=== PATIENT | female | born 1950 | race Caucasian/White ===

== ENCOUNTER → 2018-05-14 09:25 | Outpatient (CLI) | payer OTHER, SELFPAY ==
--- NOTE | 2018-05-14 | DI.MG.S_ITS ---
BILATERAL DIGITAL SCREENING MAMMOGRAM 3D/2D WITH CAD: 05/14/2018 CLINICAL: Routine screening. Comparison is made to exams dated: 05/13/2017 mammogram, 05/11/2016 mammogram, and 04/29/2015 mammogram - [facility]. There are scattered fibroglandular elements in both breasts. Current study was also evaluated with a Computer Aided Detection (CAD) system. No significant masses, calcifications, or other findings are seen in either breast. There has been no significant interval change. IMPRESSION: NEGATIVE There is no mammographic evidence of malignancy. A 1 year screening mammogram is recommended. This exam was interpreted at Station ID: [id number]. NOTE: For mammograms, a report in lay terms will be sent to the patient. Approximately 15% of breast malignancies will not be visualized mammographically. In the management of a palpable breast mass, a negative mammogram must not discourage biopsy of a clinically suspicious lesion. Electronically Signed By: Shivam avendano/ayesha:05/14/2018 14:41:54 letter sent: Normal Exam ACR BI-RADS Category 1: Negative 3341F
== END ==
PROVIDERS: Family Provider Family Medicine; PCP Family Medicine; Visit Provider Family Medicine
DX: Z12.31 Encounter for screening mammogram for malignant neoplasm of breast (principal)
CPT/HCPCS: 77063; 77067

== ENCOUNTER → 2018-05-29 08:35 | Outpatient (CLI) | payer OTHER, SELFPAY ==
[2018-05-29 09:16] LABS: Add Manual Diff / Slide Review NO; Basophils Percent Auto 2.3 % (0-2); Eosinophils Percent Auto 5.8 % (2-4); Hematocrit 38.3 % (36-46); Hemoglobin 13.1 g/dL (12.0-16.0); Lymphocytes Percent Auto 33.1 % (25-40); Mean Corpuscular HGB Conc 34.2 % (30-36); Mean Corpuscular Hemoglobin 29.1 PG (26-34); Neutrophils Absolute Auto 3100 /uL (3000-5900); Neutrophils Percent Auto 51.8 % (50-75); Platelet Count 253 X10^3/uL (150-400); Red Blood Cell Count 4.51 X10^6/uL (4.0-5.2); Red Cell Distribution Width 13.5 % (11.6-14.8)
[2018-05-29 09:38] LABS: Alanine Aminotransferase 20 IU/L (9-52); Albumin 4.2 g/dL (3.5-5.0); Albumin Globulin Ratio 1.5 (1.0-2.8); Alkaline Phosphatase 73 U/L (38-126); Aspartate Aminotransferase 14 IU/L (14-36); Bilirubin Total 0.6 mg/dL (0.2-1.3); Blood Urea Nitrogen 19 mg/dL (7-17); Carbon Dioxide 28 mmol/L (22-32); Chloride 102 mmol/L (98-107); Cholesterol 241 mg/dL (140-199); Estimated Glomerular Filt Rate 54.8 mL/min (>60); Globulin 2.8 g/dL (1.7-4.1); Glucose 91 mg/dL (80-110); HDL Cholesterol 43 mg/dL (40-60); HEMOLYSIS < 15 (0-50); LDL Cholesterol Calculated 168 mg/dL (<100); Potassium 3.6 mmol/L (3.4-5.1); Sodium 141 mmol/L (137-145); Triglycerides 148 mg/dL (35-150)
[2018-05-29 10:51] LABS: TSH w/ Reflex to FT4 4.14 uIU/mL (0.47-4.68)
== END ==
PROVIDERS: Family Provider Family Medicine; PCP Family Medicine; Visit Provider Family Medicine
DX: I10 Essential (primary) hypertension (principal); E78.5 Hyperlipidemia, unspecified; E03.9 Hypothyroidism, unspecified
CPT/HCPCS: 36415; 80053; 80061; 84443; 85025

== ENCOUNTER 2018-10-31 07:46 | Day surgery (SDC) | payer OTHER, SELFPAY ==
[2018-10-31] VITALS (7 sets, daily range): BP systolic 90–124; BP diastolic 49–77; PULSE 71–94; RESP 11–15; TEMP 36–36.8; O2SAT 93–100; BMI 27.3
[2018-10-31] MEDS: SODIUM CHLORIDE 0.9% 1,000 ML 200 ML IV (08:27)
--- NOTE | 2018-10-31 09:04 | PM.HP.1 ---
History of Present Illness Date Patient Seen: 10/31/18 Time Patient Seen: 09:04 Chief complaint: colonoscopy [id number] Narrative: The patient is a woman who had a colonoscopy 3 years ago. She was recommended to come back early to have a repeat colonoscopy. She had multiple polyps removed. Patient History Medical History Cataract (Chronic ~2012) Colon polyps (Chronic) Diverticular disease (Chronic) GI bleeding (Chronic) Hearing loss (Chronic) Hyperlipidemia (Chronic) Hypertension (Chronic) Hypothyroidism (Chronic) Chicken pox (Resolved) Measles (Resolved) Positive PPD (Resolved ~1971) Rubella (Resolved) Surgical History Anesthesia (Resolved) History of discectomy (Resolved ~1974) History of ovarian resection (Resolved ~1966) Status post rotator cuff repair (Resolved) S/P total abdominal hysterectomy and bilateral salpingo-oophorectomy (~1977) Status post appendectomy Status post laminectomy Status post laparoscopic cholecystectomy (~2004) Status post tonsillectomy and adenoidectomy (~1951) Family & Social History Family History: Reviewed 10/31/18 by Eliud Haider MD Social History: household members spouse Tobacco & Substance use: Smoking Status Never smoker alcohol intake never Meds Home Medications Medication Instructions Recorded Confirmed Type cholecalciferol (vitamin D3) 100 unit PO DAILY #0 04/11/12 10/31/18 History [Vitamin D3] lisinopril 10 mg PO QDAY #90 tab 06/30/18 10/31/18 Rx levothyroxine 100 mcg tablet 100 mcg PO QAM #30 tab 08/05/18 10/31/18 Rx triamterene-hydrochlorothiazid 1 cap PO QDAY #90 cap 08/19/18 10/31/18 Rx [Dyazide] coenzyme Q10 [CoQ-10] 100 mg PO DAILY 10/31/18 10/31/18 History docusate sodium 300 mg PO DAILY 10/31/18 10/31/18 History Allergies Allergy/AdvReac Type Severity Reaction Status Date / Time nitrous oxide Allergy Mild HTN, Verified 10/31/18 08:00 TACHYCARDIA, SOBBING oxycodone Allergy Mild HYPOTENSION Verified 10/31/18 08:00 Review of Systems Review of Systems All systems reviewed & are unremarkable except as noted in HPI and below Cardiovascular Comments: Hypertension and elevated cholesterol Endocrine Comments: Hypothyroid on medication Exam Vital Signs (past 8 hours): - 10/31/18 08:16 Temperature 96.8 F L Pulse Rate 94 H Respiratory Rate 15 Blood Pressure 124/77 Pulse Oximetry 100 Oxygen Delivery Method Room Air Narrative Exam Narrative: Operative no apparent distress. Eyes are nonicteric. Lungs are clear to auscultation. No rales or rhonchi. Heart regular rate and rhythm without murmur gallop. Abdomen is scaphoid soft nontender without mass or obvious hernia. Assessment & Plan Plan: Assessment/Plan Narrative: Patient for screening colonoscopy. I have discussed the risks and benefits. I have discussed the procedure and the rationale with the patient including risks of bleeding, perforation which would necessitate a major operation, failure to find remove all lesions and the potential to tattoo. They appeared to understand and wished to proceed.
--- NOTE | 2018-10-31 09:06 | PM.PREOP ---
Pre-operative Note Interval Note Pre-op Check: Yes History & Physical exam performed today by Physician Changes: No ASA Class (for procedural sedation): II
[2018-10-31] MEDS: SCOPOLAMINE 1 PATCH TOP (09:07)
[2018-10-31] MEDS: ONDANSETRON 4 MG/2 ML INJ IV (09:40)
[2018-10-31] MEDS: MIDAZOLAM 5 MG/5 ML VIAL IV (09:41)
[2018-10-31] MEDS: fentaNYL 250 MCG/5 ML INJ IV (09:41)
--- NOTE | 2018-10-31 09:46 | PM.OP.ENDO ---
Operative Date/Time/Diagnoses Date of procedure: 10/31/18 Time of procedure: 09:46 Pre-op diagnosis: Screening exam. Patient with a history of numerous polyps in the past. Frequently recurring. Last exam 3 years ago. Family history of rectal cancer. Post-op diagnosis: same (Extensive sigmoid diverticulosis with diverticulitis scattered elsewhere. Small internal hemorrhoids.) Procedure & Clinicians Study performed: Colonoscopy Same procedure as scheduled: Yes Indications: See preop diagnosis Surgeon: Eliud Haider Procedure Notes SCOAP/Timeout: Performed Procedure in detail: The patient was placed in the left lateral decubitus position and underwent IV sedation directed by the surgeon consisting of fentanyl and Versed. Digital exam was unremarkable. The scope was inserted and advanced through the rectum into the sigmoid, descending, transverse, and ascending colon. The colon was quite tortuous, especially the sigmoid colon. There were numerous diverticuli in the sigmoid colon and additional diverticuli scattered elsewhere. I had to insert a stiffener in order to reach the cecum.. The cecum was reached identified by the ileocecal valve and the appendiceal opening. The scope was gradually brought out. No Polyps were found. The scope ultimately was retroflexed in the rectum. The appearance was remarkable for small internal hemorrhoids with scarring. No active ulceration or inflammation was noted. The scope was removed and the patient tolerated the procedure well. The prep was good. Scope withdrawal time: 9 min Sedation minutes: 25 Findings: diverticulosis and internal hemorrhoids Recommendations: Colonscopy in 3 years (Due to family history and rapidity with which polyps form in this patient.) Follow up: as needed Disposition: PACU
== END 2018-10-31 10:43 | disposition home or self-care (01) ==
PROVIDERS: PCP Family Medicine; Visit Provider Specialist
PROC: 0DJD8ZZ Inspection of Lower Intestinal Tract, Via Natural or Artificial Opening Endoscopic (ICD-10-PCS; CPT 45378; principal; 2018-10-31 08:45)
DX: Z86.010 Personal history of colon polyps (principal); K57.30 Diverticulosis of large intestine without perforation or abscess without bleeding; K64.8 Other hemorrhoids; I10 Essential (primary) hypertension; E78.5 Hyperlipidemia, unspecified; E03.9 Hypothyroidism, unspecified
CPT/HCPCS: G0105; 99152; 99153; J2250; J2405; J3010

== ENCOUNTER → 2019-05-19 09:38 | Outpatient (CLI) | payer OTHER, SELFPAY ==
--- NOTE | 2019-05-19 | DI.MG.S_ITS ---
BILATERAL DIGITAL SCREENING MAMMOGRAM 3D/2D WITH CAD: 05/19/2019 CLINICAL: Routine screening. Comparison is made to exams dated: 05/14/2018 mammogram, 05/13/2017 mammogram, and 05/11/2016 mammogram - [facility]. There are scattered fibroglandular elements in both breasts. Current study was also evaluated with a Computer Aided Detection (CAD) system. No significant masses, calcifications, or other findings are seen in either breast. There has been no significant interval change. IMPRESSION: NEGATIVE There is no mammographic evidence of malignancy. A 1 year screening mammogram is recommended. This exam was interpreted at Station ID: [id number]. NOTE: For mammograms, a report in lay terms will be sent to the patient. Approximately 15% of breast malignancies will not be visualized mammographically. In the management of a palpable breast mass, a negative mammogram must not discourage biopsy of a clinically suspicious lesion. Electronically Signed By: Kelly valdez/ayesha:05/19/2019 11:54:45 letter sent: Normal Exam ACR BI-RADS Category 1: Negative 3341F
== END ==
PROVIDERS: PCP Family Medicine; Visit Provider Family Medicine
DX: Z12.31 Encounter for screening mammogram for malignant neoplasm of breast (principal)
CPT/HCPCS: 77063; 77067

== ENCOUNTER → 2019-06-03 09:00 | Outpatient (CLI) | payer OTHER, SELFPAY ==
[2019-06-03 09:51] LABS: Add Manual Diff / Slide Review NO; Basophils Absolute Auto 100 /uL (0-100); Basophils Percent Auto 1.2 % (0-2); Eosinophils Absolute Auto 400 /uL (0-450); Eosinophils Percent Auto 5.3 % (2-4); Hematocrit 39.6 % (36-46); Hemoglobin 13.4 g/dL (12.0-16.0); Lymphocytes Absolute Auto 2300 /uL (1100-4500); Lymphocytes Percent Auto 33.2 % (25-40); Mean Corpuscular HGB Conc 33.9 % (30-36); Mean Corpuscular Hemoglobin 28.7 PG (26-34); Mean Corpuscular Volume 84.5 fL (80-100); Monocytes Absolute Auto 500 /uL (0-900); Monocytes Percent Auto 7.9 % (3-14); Neutrophils Absolute Auto 3600 /uL (1500-7000); Neutrophils Percent Auto 52.4 % (50-75); Platelet Count 265 X10^3/uL (150-400); Red Blood Cell Count 4.68 X10^6/uL (4.0-5.2); Red Cell Distribution Width 13.6 % (11.6-14.8); White Blood Cell Count 6.8 X10^3/uL (4.5-11.0)
[2019-06-03 10:19] LABS: Alanine Aminotransferase 9 IU/L (9-52); Albumin 4.3 g/dL (3.5-5.0); Albumin Globulin Ratio 1.5 (1.0-2.8); Alkaline Phosphatase 100 U/L (38-126); Aspartate Aminotransferase 17 IU/L (14-36); Bilirubin Total 0.5 mg/dL (0.2-1.3); Blood Urea Nitrogen 17 mg/dL (7-17); Calcium 9.6 mg/dL (8.4-10.2); Carbon Dioxide 30 mmol/L (22-32); Chloride 100 mmol/L (98-107); Cholesterol 293 mg/dL (140-199); Estimated Glomerular Filt Rate 54.7 mL/min (>60); Globulin 2.9 g/dL (1.7-4.1); Glucose 102 mg/dL (80-110); HDL Cholesterol 39 mg/dL (40-60); HEMOLYSIS < 15 (0-50); LDL Cholesterol Calculated 184 mg/dL (<100); Potassium 3.4 mmol/L (3.4-5.1); Sodium 139 mmol/L (137-145); Total Protein 7.2 g/dL (6.3-8.2); Triglycerides 351 mg/dL (35-150)
[2019-06-03 10:50] LABS: TSH w/ Reflex to FT4 1.07 uIU/mL (0.47-4.68)
== END ==
PROVIDERS: PCP Family Medicine; Visit Provider Family Medicine
DX: E03.9 Hypothyroidism, unspecified (principal); E78.5 Hyperlipidemia, unspecified; I12.9 Hypertensive chronic kidney disease with stage 1 through stage 4 chronic kidney disease, or unspecified chronic kidney disease; N18.9 Chronic kidney disease, unspecified
CPT/HCPCS: 36415; 80053; 80061; 84443; 85025

== ENCOUNTER → 2020-05-30 11:09 | Outpatient (CLI) | payer MEDICARE, SELFPAY ==
--- NOTE | 2020-05-30 11:22 | DI.MG.S_ITS ---
Patient Name: MARIA ESTHER YOUNG date: 1950 Sex: F Attending Physician: Gilma Indications: Date: 05/30/2020 11:12 At the request of: CHRIS HEREDIA Procedure: MM screening mammo BI BILATERAL DIGITAL SCREENING MAMMOGRAM 3D/2D WITH CAD: 05/30/2020 CLINICAL: Routine screening. Comparison is made to exams dated: 05/19/2019 mammogram, 05/14/2018 mammogram, and 05/13/2017 mammogram - [facility]. There are scattered fibroglandular elements in both breasts. Current study was also evaluated with a Computer Aided Detection (CAD) system. No significant masses, calcifications, or other findings are seen in either breast. There has been no significant interval change. IMPRESSION: NEGATIVE There is no mammographic evidence of malignancy. A 1 year screening mammogram is recommended. This exam was interpreted at Station ID: [id number]. NOTE: For mammograms, a report in lay terms will be sent to the patient. Approximately 15% of breast malignancies will not be visualized mammographically. In the management of a palpable breast mass, a negative mammogram must not discourage biopsy of a clinically suspicious lesion. Electronically Signed By: Chris Parson M.D., jr/ayesha:05/30/2020 11:54:33 letter sent: Normal Exam ACR BI-RADS Category 1: Negative 3341F
== END ==
PROVIDERS: PCP Family Medicine; Referring Provider Family Medicine; Visit Provider Family Medicine
DX: Z12.31 Encounter for screening mammogram for malignant neoplasm of breast (principal)
CPT/HCPCS: 77063; 77067

== ENCOUNTER → 2020-07-25 08:42 | Outpatient (CLI) | payer MEDICARE, SELFPAY ==
[2020-07-25 09:24] LABS: Add Manual Diff / Slide Review NO; Basophils Absolute Auto 100 /uL (0-100); Basophils Percent Auto 1.4 % (0-2); Eosinophils Absolute Auto 400 /uL (0-450); Eosinophils Percent Auto 4.9 % (2-4); Hematocrit 37.8 % (36-46); Hemoglobin 12.6 g/dL (12.0-16.0); Lymphocytes Absolute Auto 2400 /uL (1100-4500); Lymphocytes Percent Auto 33.4 % (25-40); Mean Corpuscular HGB Conc 33.2 % (30-36); Mean Corpuscular Hemoglobin 27.9 PG (26-34); Mean Corpuscular Volume 83.9 fL (80-100); Monocytes Absolute Auto 500 /uL (0-900); Monocytes Percent Auto 6.9 % (3-14); Neutrophils Absolute Auto 3800 /uL (1500-7000); Neutrophils Percent Auto 53.4 % (50-75); Platelet Count 372 X10^3/uL (150-400); Red Cell Distribution Width 14.6 % (11.6-14.8); White Blood Cell Count 7.1 X10^3/uL (4.5-11.0)
[2020-07-25 09:44] LABS: Alanine Aminotransferase 20 IU/L (<35); Albumin 4.3 g/dL (3.5-5.0); Albumin Globulin Ratio 1.5 (1.0-2.8); Alkaline Phosphatase 104 U/L (38-126); Aspartate Aminotransferase 18 IU/L (14-36); BUN Creatinine Ratio 12.6 (6-22); Bilirubin Total 0.6 mg/dL (0.2-1.3); Blood Urea Nitrogen 14 mg/dL (7-17); Calcium 9.8 mg/dL (8.4-10.2); Carbon Dioxide 28 mmol/L (22-32); Chloride 100 mmol/L (98-107); Cholesterol 243 mg/dL (140-199); Estimated Glomerular Filt Rate 48.3 mL/min (>60); Globulin 2.8 g/dL (1.7-4.1); Glucose 104 mg/dL (80-110); HDL Cholesterol 41 mg/dL (40-60); HEMOLYSIS < 15 (0-50); LDL Cholesterol Calculated 143 mg/dL (<100); Sodium 135 mmol/L (137-145); Total Protein 7.1 g/dL (6.3-8.2); Triglycerides 295 mg/dL (35-150)
[2020-07-25 10:14] LABS: TSH w/ Reflex to FT4 0.61 uIU/mL (0.47-4.68)
== END ==
PROVIDERS: PCP Family Medicine; Referring Provider Family Medicine; Visit Provider Family Medicine
DX: E03.9 Hypothyroidism, unspecified (principal); E78.2 Mixed hyperlipidemia; I10 Essential (primary) hypertension; N18.9 Chronic kidney disease, unspecified
CPT/HCPCS: 36415; 80053; 80061; 84443; 85025

== ENCOUNTER → 2020-10-01 15:03 | Outpatient (CLI) | payer MEDICARE, SELFPAY ==
[2020-10-03 07:59] LABS: COVID19 Sendout Not Detected (Not Detect)
== END ==
PROVIDERS: PCP Family Medicine; Visit Provider Physician Assistant
DX: Z11.59 Encounter for screening for other viral diseases (principal)
CPT/HCPCS: 87635

== ENCOUNTER 2020-10-04 07:33 | Day surgery (SDC) | payer MEDICARE, SELFPAY ==
[2020-10-04] MEDS: PROPARACAINE 0.5% OPHTH SOL 2 DROPS EYE-OP (08:17)
[2020-10-04] MEDS: CATARACT EYE COMPOUND (10 DROPS/SYRINGE) 3 DROPS EYE-OP (08:19)
[2020-10-04 08:25] VITALS: BP 147/87; PULSE 85; RESP 14; TEMP 37; O2SAT 100; BMI 31.3
--- NOTE | 2020-10-04 09:08 | PM.PREOP ---
Pre-operative Note Interval Note History & Physical reviewed/Exam performed by Physician: Yes Changes to H&P: No
--- NOTE | 2020-10-04 09:09 | P.OP_ITS ---
Operative Date/Time/Diagnoses Pre-op diagnosis: Nuclear Cataract Left eye Post-op diagnosis: same Procedure & Clinicians Same procedure as scheduled: Yes Surgeon: Abilio Burnett Anesthesia Type: MAC +/- and Sedation Operative Notes Procedure in detail: Patient brought to the operating suite. Tetracaine drops placed in the left eye. Patient was prepped and draped in sterile manner. Wire lid speculum was placed in the eye. Betadine drops were placed on the eye. This was irrigated. Lidocaine jelly was placed on the eye. A paracentesis port was created with a side-port blade. 0.1 mL 1% preservative free lidocaine was injected into the anterior chamber. The anterior chamber was deepened with viscoelastic. 2.6 mm keratome was used to create a temporal clear corneal incision. Cystotome and Utrata forceps were used to create continuous tear capsulorrhexis. Balanced salt solution was used to hydro dissect the nucleus. The phacoemulsification handpiece was inserted and the nucleus was removed using the stop and chop technique. The irrigation aspiration handpiece was inserted and the remaining cortex was removed. Anterior chamber was deepened with viscoe lastic. An Hernández ZCB00 intraocular lens with a power of 21.5 was injected into the capsular bag. Irrigation aspiration handpiece was inserted and the remaining viscoelastic was removed. Incision was hydrated with balanced salt solution and found to be leak free with pressure with Weck-Lisette sponges. 0.1 mL Vigamox injected anterior chamber. 0.3 mL Kenalog 10 mg was injected subconjunctivally. Lid speculum was removed. The patient left the operating room in excellent condition. Complications: none Post-operative Condition: stable Disposition: same day surgery
[2020-10-04] MEDS: CHONDROIDTIN/SOD HYALURONATE 1.05 ML SYRINGE INTRAOCULA (09:30)
[2020-10-04] MEDS: LIDOCAINE JELLY 2% 5 ML 1 APPLIC TOP (09:30)
[2020-10-04] MEDS: TETRACAINE 0.5% OPHTH DROPS 4 ML 2 DROPS EYE-OP (09:31)
[2020-10-04] MEDS: TRIAMCINOLONE 50 MG/5 ML VIAL INJ (09:31)
[2020-10-04] MEDS: PHENYLEPHRINE/LIDOCAINE VIAL (OR) 0.2 ML EYE-OP (09:31)
[2020-10-04] MEDS: MOXIFLOXACIN INJ 5 MG/ML VIAL EYE-OP (09:31)
[2020-10-04] MEDS: BALANCED SALT IRRIG SOLN NO.2 500 ML, EPINEPHrine 1 MG IRR (09:32)
[2020-10-04 09:41] VITALS: BP 121/75; PULSE 79; RESP 16; TEMP 36.3; O2SAT 100
== END 2020-10-04 09:58 | disposition home or self-care (01) ==
PROVIDERS: PCP Family Medicine; Referring Provider Family Medicine; Visit Provider Ophthalmology
PROC: (CPT 66984; principal; 2020-10-04 09:15)
DX: H25.12 Age-related nuclear cataract, left eye (principal); I10 Essential (primary) hypertension; E03.9 Hypothyroidism, unspecified
CPT/HCPCS: 66984; J0171; J2250; J3010; J3301

== ENCOUNTER → 2020-10-15 13:44 | Outpatient (CLI) | payer MEDICARE, SELFPAY ==
[2020-10-15 15:04] LABS: COVID19 -Nasal RAPID Negative (Negative)
== END ==
PROVIDERS: PCP Family Medicine; Visit Provider Physician Assistant
DX: Z11.59 Encounter for screening for other viral diseases (principal)
CPT/HCPCS: 87635

== ENCOUNTER 2020-10-18 09:26 | Day surgery (SDC) | payer MEDICARE, SELFPAY ==
[2020-10-18] MEDS: PROPARACAINE 0.5% OPHTH SOL 2 DROPS EYE-OP (09:54)
[2020-10-18] MEDS: CATARACT EYE COMPOUND (10 DROPS/SYRINGE) 3 DROPS EYE-OP (09:54)
[2020-10-18 09:55] VITALS: BP 134/88; PULSE 88; RESP 16; TEMP 37.4; O2SAT 100; BMI 32.0
--- NOTE | 2020-10-18 10:26 | PM.PREOP ---
Pre-operative Note Interval Note History & Physical reviewed/Exam performed by Physician: Yes Changes to H&P: No
--- NOTE | 2020-10-18 10:26 | PM.OP.1 ---
Operative Date/Time/Diagnoses Pre-op diagnosis: Nuclear cataract right eye Procedure & Clinicians Procedure: Cataract Surgery Same procedure as scheduled: Yes Surgeon: Abilio Burnett Anesthesia Type: MAC +/- and Sedation Operative Notes Procedure in detail: Patient brought to the operating suite. Tetracaine drops placed in the right eye. Patient was prepped and draped in sterile manner. Wire lid speculum was placed in the eye. Betadine drops were placed on the eye. This was irrigated. Lidocaine jelly was placed on the eye. A paracentesis port was created with a side-port blade. 0.1 mL 1% preservative free lidocaine was injected into the anterior chamber. The anterior chamber was deepened with viscoelastic. 2.6 mm keratome was used to create a temporal clear corneal incision. Cystotome and Utrata forceps were used to create continuous tear capsulorrhexis. Balanced salt solution was used to hydro dissect the nucleus. The phacoemulsification handpiece was inserted and the nucleus was removed using the stop and chop technique. The irrigation aspiration handpiece was inserted and the remaining cortex was removed. Anterior chamber was deepened with viscoelastic. An Hernández ZCB00 intraocular lens with a power of 21.5 was injected into the capsular bag. Irrigation aspiration handpiece was inserted and the remaining viscoelastic was removed. Incision was hydrated with balanced salt solution and found to be leak free with pressure with Weck-Lisette sponges. 0.1 mL Vigamox injected anterior chamber. 0.3 mL Kenalog 10 mg was injected subconjunctivally. Lid speculum was removed. The patient left the operating room in excellent condition. Complications: none Post-operative Condition: stable Disposition: same day surgery
[2020-10-18] MEDS: PHENYLEPHRINE/LIDOCAINE VIAL (OR) 0.2 ML EYE-OP (11:00)
[2020-10-18] MEDS: TETRACAINE 0.5% OPHTH DROPS 4 ML 2 DROPS EYE-OP (11:01)
[2020-10-18] MEDS: MOXIFLOXACIN INJ 5 MG/ML VIAL EYE-OP (11:01)
[2020-10-18] MEDS: TRIAMCINOLONE 50 MG/5 ML VIAL INJ (11:01)
[2020-10-18] MEDS: CHONDROIDTIN/SOD HYALURONATE 1.05 ML SYRINGE INTRAOCULA (11:01)
[2020-10-18] MEDS: LIDOCAINE JELLY 2% 5 ML 1 APPLIC TOP (11:01)
[2020-10-18] MEDS: BALANCED SALT IRRIG SOLN NO.2 500 ML, EPINEPHrine 1 MG IRR (11:02)
[2020-10-18 11:17] VITALS: BP 129/79; PULSE 80; RESP 16; TEMP 37.1; O2SAT 100
== END 2020-10-18 11:26 | disposition home or self-care (01) ==
PROVIDERS: PCP Family Medicine; Referring Provider Family Medicine; Visit Provider Ophthalmology
PROC: (CPT 66984; principal; 2020-10-18 11:15)
DX: H25.11 Age-related nuclear cataract, right eye (principal); E03.9 Hypothyroidism, unspecified; I10 Essential (primary) hypertension
CPT/HCPCS: 66984; J0171; J2250; J3301

== ENCOUNTER → 2021-06-15 08:11 | Outpatient (CLI) | payer MEDICARE, SELFPAY ==
--- NOTE | 2021-06-15 | DI.MG.S_ITS ---
BILATERAL DIGITAL SCREENING MAMMOGRAM 3D/2D WITH CAD: 06/15/2021 CLINICAL: Routine screening. Comparison is made to exams dated: 05/30/2020 mammogram, 05/19/2019 mammogram, and 05/14/2018 mammogram - [facility]. The tissue of both breasts is predominantly fatty. Current study was also evaluated with a Computer Aided Detection (CAD) system. There are benign post operative findings in the left breast. No significant masses, calcifications, or other findings are seen in either breast. There has been no significant interval change. IMPRESSION: BENIGN There is no mammographic evidence of malignancy. A 1 year screening mammogram is recommended. This exam was interpreted at Station ID: [id number]. NOTE: For mammograms, a report in lay terms will be sent to the patient. Approximately 15% of breast malignancies will not be visualized mammographically. In the management of a palpable breast mass, a negative mammogram must not discourage biopsy of a clinically suspicious lesion. Electronically Signed By: Sharonda torres/ayesha:06/15/2021 09:26:46 letter sent: Normal Exam ACR BI-RADS Category 2: Benign Finding(s) 3342F
== END ==
PROVIDERS: PCP Family Medicine; Referring Provider Family Medicine; Visit Provider Family Medicine
DX: Z12.31 Encounter for screening mammogram for malignant neoplasm of breast (principal)
CPT/HCPCS: 77063; 77067

== ENCOUNTER → 2021-10-02 08:09 | Outpatient (CLI) | payer MEDICARE, SELFPAY ==
[2021-10-02 09:13] LABS: Add Manual Diff / Slide Review NO; Basophils Absolute Auto 100 /uL (0-100); Basophils Percent Auto 1.1 % (0-2); Eosinophils Absolute Auto 400 /uL (0-450); Eosinophils Percent Auto 7.4 % (2-4); Hematocrit 37.9 % (36-46); Hemoglobin 12.7 g/dL (12.0-16.0); Lymphocytes Absolute Auto 2100 /uL (1100-4500); Lymphocytes Percent Auto 35.4 % (25-40); Mean Corpuscular HGB Conc 33.6 % (30-36); Mean Corpuscular Hemoglobin 28.8 PG (26-34); Mean Corpuscular Volume 85.7 fL (80-100); Monocytes Absolute Auto 400 /uL (0-900); Monocytes Percent Auto 6.8 % (3-14); Neutrophils Absolute Auto 2900 /uL (1500-7000); Neutrophils Percent Auto 49.3 % (50-75); Platelet Count 309 X10^3/uL (150-400); Red Blood Cell Count 4.42 X10^6/uL (4.0-5.2); Red Cell Distribution Width 13.7 % (11.6-14.8); White Blood Cell Count 5.9 X10^3/uL (4.5-11.0)
[2021-10-02 09:41] LABS: Alanine Aminotransferase 25 IU/L (<35); Albumin 4.4 g/dL (3.5-5.0); Albumin Globulin Ratio 1.6 (1.0-2.8); Alkaline Phosphatase 98 U/L (38-126); Aspartate Aminotransferase 33 IU/L (14-36); BUN Creatinine Ratio 17.1 (6-22); Bilirubin Total 0.6 mg/dL (0.2-1.3); Blood Urea Nitrogen 19 mg/dL (7-17); Calcium 9.8 mg/dL (8.4-10.2); Carbon Dioxide 28 mmol/L (22-32); Chloride 102 mmol/L (98-107); Cholesterol 282 mg/dL (140-199); Estimated Glomerular Filt Rate 48.2 mL/min (>60); Globulin 2.7 g/dL (1.7-4.1); Glucose 108 mg/dL (80-110); HDL Cholesterol 41 mg/dL (40-60); HEMOLYSIS < 15 (0-50); LDL Cholesterol Calculated 184 mg/dL (<100); Potassium 3.6 mmol/L (3.4-5.1); Sodium 139 mmol/L (137-145); Total Protein 7.1 g/dL (6.3-8.2); Triglycerides 284 mg/dL (35-150)
[2021-10-02 10:11] LABS: TSH w/ Reflex to FT4 2.03 uIU/mL (0.47-4.68)
== END ==
PROVIDERS: PCP Family Medicine; Referring Provider Family Medicine; Visit Provider Family Medicine
DX: E03.9 Hypothyroidism, unspecified (principal); I10 Essential (primary) hypertension; E78.5 Hyperlipidemia, unspecified; N18.9 Chronic kidney disease, unspecified; Z86.010 Personal history of colon polyps
CPT/HCPCS: 36415; 80053; 80061; 84443; 85025

== ENCOUNTER → 2022-06-18 11:12 | Outpatient (CLI) | payer MEDICARE, SELFPAY ==
--- NOTE | 2022-06-18 | DI.MG.S_ITS ---
BILATERAL DIGITAL SCREENING MAMMOGRAM 3D/2D WITH CAD: 06/18/2022 CLINICAL: Routine screening. Comparison is made to exams dated: 06/15/2021 mammogram, 05/30/2020 mammogram, 05/19/2019 mammogram, 05/14/2018 mammogram, and 05/13/2017 mammogram - [facility]. The tissue of both breasts is predominantly fatty. Current study was also evaluated with a Computer Aided Detection (CAD) system. There are benign post operative findings in the left breast. No significant masses, calcifications, or other findings are seen in either breast. There has been no significant interval change. IMPRESSION: BENIGN There is no mammographic evidence of malignancy. A 1 year screening mammogram is recommended. Based on the Tyrer Cuzick model (a risk assessment model) the patient's lifetime risk is 2.7% and her 10 year risk is 2.4%. According to the ACR, ACS, and NCCN guidelines, an annual breast MRI exam along with mammogram is recommended if the patient's lifetime risk is 20% or greater. This exam was interpreted at Station ID: [id number]. NOTE: For mammograms, a report in lay terms will be sent to the patient. Approximately 15% of breast malignancies will not be visualized mammographically. In the management of a palpable breast mass, a negative mammogram must not discourage biopsy of a clinically suspicious lesion. Electronically Signed By: Jermain castillo/ayesha:06/18/2022 13:59:02 letter sent: Normal Exam ACR BI-RADS Category 2: Benign Finding(s) 3342F
== END ==
PROVIDERS: PCP Family Medicine; Referring Provider Family Medicine; Visit Provider Family Medicine
DX: Z12.31 Encounter for screening mammogram for malignant neoplasm of breast (principal)
CPT/HCPCS: 77063; 77067

== ENCOUNTER → 2022-10-03 08:14 | Outpatient (CLI) | payer MEDICARE, SELFPAY ==
[2022-10-03 08:47] LABS: Add Manual Diff / Slide Review NO; Basophils Absolute Auto 0 /uL (0-100); Basophils Percent Auto 0.4 % (0-2); Eosinophils Absolute Auto 700 /uL (0-450); Eosinophils Percent Auto 9.2 % (2-4); Hematocrit 37.5 % (36-46); Hemoglobin 12.8 g/dL (12.0-16.0); Lymphocytes Absolute Auto 1600 /uL (1100-4500); Lymphocytes Percent Auto 21.6 % (25-40); Mean Corpuscular Volume 85.1 fL (80-100); Monocytes Absolute Auto 400 /uL (0-900); Monocytes Percent Auto 5.5 % (3-14); Neutrophils Absolute Auto 4800 /uL (1500-7000); Neutrophils Percent Auto 63.3 % (50-75); Platelet Count 260 X10^3/uL (150-400); Red Blood Cell Count 4.41 X10^6/uL (4.0-5.2); Red Cell Distribution Width 13.8 % (11.6-14.8); White Blood Cell Count 7.6 X10^3/uL (4.5-11.0)
[2022-10-03 09:26] LABS: Alanine Aminotransferase 17 IU/L (<35); Albumin 4.1 g/dL (3.5-5.0); Albumin Globulin Ratio 1.5 (1.0-2.8); Alkaline Phosphatase 120 U/L (38-126); Aspartate Aminotransferase 17 IU/L (14-36); BUN Creatinine Ratio 15.4 (6-22); Bilirubin Total 0.5 mg/dL (0.2-1.3); Blood Urea Nitrogen 18 mg/dL (7-17); Calcium 9.2 mg/dL (8.4-10.2); Carbon Dioxide 30 mmol/L (22-32); Chloride 101 mmol/L (98-107); Cholesterol 243 mg/dL (140-199); Estimated Glomerular Filt Rate 49 mL/min (>60); Globulin 2.7 g/dL (1.7-4.1); Glucose 107 mg/dL (80-110); HDL Cholesterol 43 mg/dL (40-60); HEMOLYSIS < 15 (0-50); LDL Cholesterol Calculated 142 mg/dL (<100); Potassium 3.6 mmol/L (3.4-5.1); Sodium 137 mmol/L (137-145); Total Protein 6.8 g/dL (6.3-8.2); Triglycerides 290 mg/dL (35-150)
[2022-10-03 09:51] LABS: Thyroid Stimulating Hormone 1.35 uIU/mL (0.47-4.68)
== END ==
PROVIDERS: PCP Family Medicine; Referring Provider Family Medicine; Visit Provider Family Medicine
DX: E03.9 Hypothyroidism, unspecified (principal); E78.5 Hyperlipidemia, unspecified; I10 Essential (primary) hypertension; N18.9 Chronic kidney disease, unspecified
CPT/HCPCS: 36415; 80053; 80061; 84443; 85025

== ENCOUNTER 2023-04-16 07:26 | Day surgery (SDC) | payer MEDICARE, SELFPAY ==
[2023-04-16] VITALS (8 sets, daily range): BP systolic 110–132; BP diastolic 61–84; PULSE 65–99; RESP 12–19; TEMP 36.1–36.4; O2SAT 93–100; BMI 29.2
[2023-04-16] MEDS: SCOPOLAMINE 1 PATCH TOP (07:54)
[2023-04-16] MEDS: LACTATED RINGERS 1,000 ML 200 ML IV (07:54)
--- NOTE | 2023-04-16 08:16 | P.HP_ITS ---
History of Present Illness History of Present Illness Date Patient Seen: 04/16/23 Time Patient Seen: 08:16 Chief complaint: SDC Narrative: 73-year-old woman here for colorectal screening with colonoscopy. Strong family history of colon cancer in both mother and father. Last colonoscopy was approximately 4 years ago she has a history of benign polyps. No recent change in bowel function blood per rectum nausea vomiting unintentional weight loss. She has a history of diverticular disease and a tortuous colon [facility] Medical History (Updated 10/02/21 @ 08:07 by Chris Dillard MD) Cataract (~2012) Chicken pox Colon polyps Diverticular disease GI bleeding Hearing loss Hyperlipidemia Hypertension Hypothyroidism Measles Positive PPD (~1971) Rubella Surgical History Anesthesia History of discectomy (~1974) History of ovarian resection (~1966) S/P total abdominal hysterectomy and bilateral salpingo-oophorectomy (~1977) Status post appendectomy Status post laminectomy Status post laparoscopic cholecystectomy (~2004) Status post rotator cuff repair Status post tonsillectomy and adenoidectomy (~1951) Family History Brother Age: 76 Prostate cancer Arthritis Father Rectal cancer Grandfather Stomach cancer Grandmother No problems noted. Mother Colon cancer Grandfather Accident while engaged in work-related activity Grandmother History of toxemia of Social History marital status: household members: spouse Smoking Status: Never smoker alcohol intake: never substance use type: does not use Meds Home Medications and Allergies Home Medications Medication Instructions Recorded Confirmed Type coenzyme Q10 100 mg capsule 100 mg PO DAILY 10/31/18 04/16/23 History (CoQ-10) docusate sodium 100 mg tablet 300 mg PO DAILY 10/31/18 04/16/23 History cholecalciferol (vitamin D3) 100 4,000 unit PO DAILY 06/09/19 04/16/23 History mcg (4,000 unit) capsule levothyroxine 100 mcg tablet 100 mcg PO DAILY #90 tabs 10/01/22 04/16/23 Rx lisinopril 10 mg tablet 10 mg PO QDAY #90 tabs 10/01/22 04/16/23 Rx triamterene 37.5 1 cap PO DAILY #90 caps 10/01/22 04/16/23 Rx mg-hydrochlorothiazide 25 mg capsule Allergies Allergy/AdvReac Type Severity Reaction Status Date / Time nitrous oxide Allergy Mild HTN, Verified 04/16/23 07:37 TACHYCARDIA, SOBBING oxycodone Allergy Mild HYPOTENSION, Verified 04/16/23 07:37 Suicidal Ideations Exam Vital Signs (past 8 hours): - 04/16/23 07:48 Temperature 97.0 F L Pulse Rate 99 H Respiratory Rate 19 Blood Pressure 132/84 Pulse Oximetry 100 Oxygen Delivery Method Room Air Oxygen Delivery Method Room Air Narrative Exam Narrative: General adult woman alert oriented no acute distress Abdomen soft nontender nondistended Assessment & Plan Assessment and plan (1) History of colon polyps: Status: Chronic Assessment & Plan narrative: The patient requires colorectal screening and colonoscopy is recommended. Technical details were discussed. Risks, benefits, alternatives explained. Risks including but not limited to myocardial infarction, aspiration, bleeding, pain, missed lesion, incomplete examination, need for further radiographic studies, colonic perforation, and need for major abdominal surgery were discussed. All questions were answered to their satisfaction, and they are in agreement with this plan.
--- NOTE | 2023-04-16 08:55 | PM.OP.COLON ---
Operative Date/Time/Diagnoses Date of procedure: 04/16/23 Time of procedure: 08:55 Pre-op diagnosis: Family history of colon cancer Personal history of colonic polyps Post-op diagnosis: same Procedure & Clinicians Study performed: Sigmoidoscopy Same procedure as scheduled: No Indications: 73-year-old woman with a history of polyps and a family history of colon cancer here for colorectal screening by colonoscopy. Surgeon: Shawn Auguste Procedure Notes Procedure in detail: The history and physical was performed/updated and the patient is ASA class is 2. The procedure was discussed in detail with the patient. Potential risks complications including infection, bleeding, missed diagnosis, perforation, need for surgery, and were explained. Their questions were answered and informed consent was obtained. Patient was brought to the procedure room and placed standard monitoring equipment. The patient's vital signs were monitored continuously throughout the entire procedure. Prior to starting time-out was performed. The patient was placed in the left lateral recumbent position. Procedural sedation was administered by anesthesia. Examination began with a thorough inspection of the perianal area there was no evidence of fissures, fistulae, external hemorrhoids or cutaneous malignancy. The colonoscopy scope was then placed into the anal canal and was advanced forward. Sigmoid colon was notable for extensive diverticulosis and tortuosity. I safely reached 30 cm from the anal verge and there was no evidence of mass or polyps. Beyond this level no safe forward progress could be made. Attempts at repositioning, external compression and stiffening of the pediatric scope were not sufficient to provide safe passage. The colonoscopy was then aborted The patient tolerated the procedure well. They will be discharged once criteria are met. The prep was of good/excellent quality. Impression: Incomplete colonoscopy. Normal sigmoidoscopy Post-procedure Plan for aftercare: Barium enema as an alternative Disposition: same day surgery
[2023-04-16] MEDS: METOCLOPRAMIDE 10 MG/2 ML INJ IV (09:07)
== END 2023-04-16 09:38 | disposition home or self-care (01) ==
PROVIDERS: PCP Family Medicine; Referring Provider Surgery; Visit Provider Surgery
PROC: 0DJD8ZZ Inspection of Lower Intestinal Tract, Via Natural or Artificial Opening Endoscopic (ICD-10-PCS; CPT 45378; principal; 2023-04-16 08:30)
DX: Z12.11 Encounter for screening for malignant neoplasm of colon (principal); Z86.010 Personal history of colon polyps; Z80.0 Family history of malignant neoplasm of digestive organs; K57.30 Diverticulosis of large intestine without perforation or abscess without bleeding; Z53.09 Procedure and treatment not carried out because of other contraindication
CPT/HCPCS: 45378; J2704; J2765

== ENCOUNTER → 2023-06-20 09:13 | Outpatient (CLI) | payer MEDICARE, SELFPAY ==
--- NOTE | 2023-06-20 09:15 | DI.RAD.S_ITS ---
PROCEDURE: XR SHOULDER LT MIN 2V INDICATIONS: Fall, pain in left shoulder TECHNIQUE: 3 views of the shoulder were acquired. COMPARISON: [facility], , SHOULDER MINIMUM 2VIEW RIGHT, 08/25/2007, 15:49. FINDINGS: Bones: No fractures or dislocations. No suspicious bony lesions. Visualized ribs appear intact. Soft tissues: No suspicious soft tissue calcifications. IMPRESSION: Unremarkable left shoulder Approved by: Alex Leong M.D. on 06/20/2023 at 17:10
--- NOTE | 2023-06-20 09:15 | DI.RAD.S_ITS ---
PROCEDURE: XR CERVICAL SPINE 2V OR 3V INDICATIONS: Fall, tenderness to palpation at C4-C6 TECHNIQUE: 3 view(s) of the cervical spine were acquired. COMPARISON: None. FINDINGS: Bones: Vertebral body height, bone mineralization and craniovertebral relationships are normal. Grade 1 anterior spondylolisthesis noted at C3-4. Degenerative disc disease in the mid cervical spine Soft tissues: No prevertebral soft tissue swelling. IMPRESSION: Degenerative changes without fracture Approved by: Alex Leong M.D. on 06/20/2023 at 17:04
--- NOTE | 2023-06-20 09:15 | DI.RAD.S_ITS ---
PROCEDURE: XR WRIST RT MIN 3V INDICATIONS: Fall, pain R wrist - point tender ze/scaph area TECHNIQUE: 4 views of the wrist were acquired. COMPARISON: None. FINDINGS: Bones: No fractures or dislocations. Mild osteoarthritic changes along radial aspect of right wrist are seen most notably involving 1st CMC joint and scaphoid trapezial joint. No suspicious bony lesions. Scaphoid view: Scaphoid is grossly intact. No evidence of avascular necrosis. Soft tissues: No suspicious soft tissue calcifications. 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 No fracture or dislocation. No suspicious bony lesions. Dictated by: Dimitri Ivory M.D. on 06/20/2023 at 11:59 Approved by: Dimitri Ivory M.D. on 06/20/2023 at 11:59
--- NOTE | 2023-06-20 09:15 | DI.RAD.S_ITS ---
PROCEDURE: XR HIP W PEL IF DONE CHANEL MIN 4V INDICATIONS: Fall, L hip pain, pain B ischial tuberosity TECHNIQUE: AP pelvis with lateral view(s) of the left hip(s). COMPARISON: None. FINDINGS: Bones: There is a small linear calcification adjacent to the left femoral trochanter. Pelvic ring appears intact. No suspicious bony lesions. Soft tissues: The visualized bowel gas pattern is normal. No suspicious soft tissue calcifications. IMPRESSION: Linear calcification adjacent to the left femoral trochanter. Avulsion fracture cannot be excluded. Dictated by: Deann Shoemaker M.D. on 06/20/2023 at 16:32 Approved by: Deann Shoemaker M.D. on 06/20/2023 at 16:32
--- NOTE | 2023-06-20 09:15 | DI.RAD.S_ITS ---
PROCEDURE: XR THORACIC SPINE 2V INDICATIONS: Fall, tenderness to palpation at approx T3 TECHNIQUE: 3 views of the thoracic spine were acquired. COMPARISON: None. FINDINGS: Bones: No fractures or dislocations. No suspicious bony lesions. 12 pairs of ribs are noted, and appear intact where visualized. Scattered degenerative disc space narrowing and anterior osteophytes. Soft tissues: No paravertebral stripe thickening. IMPRESSION: Macro occult injury Dictated by: Deann Shoemaker M.D. on 06/20/2023 at 16:33 Approved by: Deann Shoemaker M.D. on 06/20/2023 at 16:33
== END ==
PROVIDERS: PCP Family Medicine; Referring Provider Physician Assistant; Visit Provider Physician Assistant
DX: M50.320 Other cervical disc degeneration, mid-cervical region, unspecified level (principal); M25.531 Pain in right wrist; M25.552 Pain in left hip; M54.6 Pain in thoracic spine; M25.512 Pain in left shoulder
CPT/HCPCS: 72040; 72070; 73030; 73110; 73522

== ENCOUNTER → 2023-10-03 09:42 | Outpatient (CLI) | payer MEDICARE, SELFPAY ==
[2023-10-03 10:59] LABS: Add Manual Diff / Slide Review NO; Basophils Absolute Auto 100 /uL (0-100); Basophils Percent Auto 1.3 % (0-2); Eosinophils Absolute Auto 400 /uL (0-450); Eosinophils Percent Auto 5.6 % (2-4); Hematocrit 36.7 % (36-46); Hemoglobin 12.3 g/dL (12.0-16.0); Lymphocytes Absolute Auto 2200 /uL (1100-4500); Lymphocytes Percent Auto 31.2 % (25-40); Mean Corpuscular HGB Conc 33.4 % (30-36); Mean Corpuscular Hemoglobin 28.3 PG (26-34); Mean Corpuscular Volume 84.8 fL (80-100); Monocytes Absolute Auto 500 /uL (0-900); Monocytes Percent Auto 6.7 % (3-14); Neutrophils Absolute Auto 3800 /uL (1500-7000); Neutrophils Percent Auto 55.2 % (50-75); Platelet Count 279 X10^3/uL (150-400); Red Blood Cell Count 4.33 X10^6/uL (4.0-5.2); Red Cell Distribution Width 14.5 % (11.6-14.8); White Blood Cell Count 6.9 X10^3/uL (4.5-11.0)
[2023-10-03 11:33] LABS: Alanine Aminotransferase 18 IU/L (<35); Albumin 4.2 g/dL (3.5-5.0); Albumin Globulin Ratio 1.4 (1.0-2.8); Alkaline Phosphatase 80 U/L (38-126); Aspartate Aminotransferase 19 IU/L (14-36); BUN Creatinine Ratio 18.6 (6-22); Bilirubin Total 0.6 mg/dL (0.2-1.3); Blood Urea Nitrogen 21 mg/dL (7-17); C-Reactive Protein Quant 1.3 mg/dL (<1.0); Calcium 10.1 mg/dL (8.4-10.2); Carbon Dioxide 27 mmol/L (22-32); Chloride 103 mmol/L (98-107); Cholesterol 275 mg/dL (140-199); Estimated Glomerular Filt Rate 51 mL/min (>60); Globulin 3.1 g/dL (1.7-4.1); Glucose 100 mg/dL (80-110); HDL Cholesterol 42 mg/dL (40-60); HEMOLYSIS < 15 (0-50); LDL Cholesterol Calculated 183 mg/dL (<100); Sodium 138 mmol/L (137-145); Total Protein 7.3 g/dL (6.3-8.2); Triglycerides 248 mg/dL (35-150)
[2023-10-03 11:37] LABS: Rheumatoid Factor < 8.6 IU/mL (<12.0)
[2023-10-03 11:51] LABS: Erythrocyte Sedimentation Rate 17 MM/HR (0-20)
[2023-10-03 12:13] LABS: TSH w/ Reflex to FT4 1.04 uIU/mL (0.47-4.68)
[2023-10-08 22:07] LABS: CCP Antibodies IgG/IgA 0 units (0-19)
== END ==
PROVIDERS: PCP Family Medicine; Referring Provider Physician Assistant; Visit Provider Physician Assistant
DX: E03.9 Hypothyroidism, unspecified (principal); I10 Essential (primary) hypertension; M25.50 Pain in unspecified joint; E78.5 Hyperlipidemia, unspecified; N18.9 Chronic kidney disease, unspecified; M54.2 Cervicalgia; G89.29 Other chronic pain
CPT/HCPCS: 36415; 80053; 80061; 84443; 85025; 85651; 86140; 86200; 86430

== ENCOUNTER → 2024-10-05 09:19 | Outpatient (CLI) | payer MEDICARE, SELFPAY ==
[2024-10-05 10:26] LABS: Add Manual Diff / Slide Review NO; Basophils Absolute Auto 100 /uL (0-100); Basophils Percent Auto 1.1 % (0-2); Eosinophils Absolute Auto 300 /uL (0-450); Eosinophils Percent Auto 3.3 % (2-4); Hematocrit 40.7 % (36-46); Hemoglobin 13.5 g/dL (12.0-16.0); Lymphocytes Absolute Auto 1800 /uL (1100-4500); Lymphocytes Percent Auto 22.2 % (25-40); Mean Corpuscular HGB Conc 33.1 % (30-36); Mean Corpuscular Hemoglobin 28.7 PG (26-34); Mean Corpuscular Volume 86.7 fL (80-100); Monocytes Absolute Auto 500 /uL (0-900); Monocytes Percent Auto 6.6 % (3-14); Neutrophils Absolute Auto 5500 /uL (1500-7000); Neutrophils Percent Auto 66.8 % (50-75); Platelet Count 297 X10^3/uL (150-400); Red Cell Distribution Width 13.6 % (11.6-14.8); White Blood Cell Count 8.2 X10^3/uL (4.5-11.0)
[2024-10-05 10:54] LABS: Alanine Aminotransferase 16 IU/L (<35); Albumin 4.4 g/dL (3.5-5.0); Albumin Globulin Ratio 1.8 (1.0-2.8); Alkaline Phosphatase 94 U/L (38-126); Aspartate Aminotransferase 21 IU/L (14-36); BUN Creatinine Ratio 14.4 (6-22); Bilirubin Total 0.7 mg/dL (0.2-1.3); Blood Urea Nitrogen 18 mg/dL (7-17); Calcium 10.1 mg/dL (8.4-10.2); Carbon Dioxide 27 mmol/L (22-32); Chloride 104 mmol/L (98-107); Cholesterol 282 mg/dL (140-199); Estimated Glomerular Filt Rate 45 mL/min (>60); Globulin 2.5 g/dL (1.7-4.1); Glucose 97 mg/dL (80-110); HDL Cholesterol 47 mg/dL (40-60); HEMOLYSIS < 15 (0-50); LDL Cholesterol Calculated 188 mg/dL (<100); Potassium 3.7 mmol/L (3.4-5.1); Sodium 138 mmol/L (137-145); Total Protein 6.9 g/dL (6.3-8.2); Triglycerides 237 mg/dL (35-150)
== END ==
PROVIDERS: PCP Family Medicine; Referring Provider Family Medicine; Visit Provider Family Medicine
DX: E03.9 Hypothyroidism, unspecified (principal); E78.5 Hyperlipidemia, unspecified; E78.2 Mixed hyperlipidemia; N18.2 Chronic kidney disease, stage 2 (mild); I12.9 Hypertensive chronic kidney disease with stage 1 through stage 4 chronic kidney disease, or unspecified chronic kidney disease
CPT/HCPCS: 36415; 80053; 80061; 84443; 85025

== ENCOUNTER → 2025-09-27 10:10 | Outpatient (CLI) | payer OTHER, SELFPAY ==
[2025-09-27 11:04] LABS: Add Manual Diff / Slide Review NO; Hematocrit 39.6 % (36-46); Hemoglobin 13.5 g/dL (12.0-16.0); Lymphocytes Absolute Auto 2100 /uL (1100-4500); Mean Corpuscular HGB Conc 34.1 % (30-36); Mean Corpuscular Hemoglobin 28.6 PG (26-34); Mean Corpuscular Volume 83.7 fL (80-100); Platelet Count 294 X10^3/uL (150-400)
[2025-09-27 11:25] LABS: Alanine Aminotransferase 17 IU/L (<35); Albumin 4.6 g/dL (3.5-5.0); Albumin Globulin Ratio 1.8 (1.0-2.8); Alkaline Phosphatase 98 U/L (38-126); Blood Urea Nitrogen 19 mg/dL (7-17); Calcium 10.3 mg/dL (8.4-10.2); Carbon Dioxide 27 mmol/L (22-32); Chloride 101 mmol/L (98-107); Cholesterol 265 mg/dL (140-199); Estimated Glomerular Filt Rate 42 mL/min (>60); Globulin 2.6 g/dL (1.7-4.1); Glucose 102 mg/dL (70-99); HDL Cholesterol 48 mg/dL (40-60); HEMOLYSIS < 15 (0-50); Potassium 3.8 mmol/L (3.4-5.1); Sodium 138 mmol/L (137-145); Total Protein 7.2 g/dL (6.3-8.2); Triglycerides 258 mg/dL (35-150); Uric Acid 9.3 mg/dL (2.5-6.2)
[2025-09-27 11:57] LABS: TSH w/ Reflex to FT4 0.62 uIU/mL (0.47-4.68)
== END ==
PROVIDERS: PCP Family Medicine; Referring Provider Family Medicine; Visit Provider Family Medicine
DX: E78.2 Mixed hyperlipidemia (principal); I10 Essential (primary) hypertension; N18.2 Chronic kidney disease, stage 2 (mild); M10.9 Gout, unspecified
CPT/HCPCS: 36415; 80053; 80061; 84443; 84550; 85025